=== PATIENT | female | born 1995 | race Caucasian/White ===

== ENCOUNTER 2016-07-01 21:24 | Emergency (ER) | payer OTHER ==
[~2016-07-01] VITALS: Ht 172.7 cm; Wt 75.0 kg
[2016-07-01 21:27] VITALS: BP 118/74; PULSE 76; RESP 16; O2SAT 100
--- NOTE | 2016-07-01 22:33 | ED.REPORT ---
HPI-Abd Pain F Under 40 Date of Service Jul 01, 2016 ED Provider: Dr. Mckinnon Pt is a healthy 20 y/o female presenting to the ED c/o LLQ abdominal cramping and vaginal spotting onset about 2 hours ago. She c/o associated nausea. The patient took 2 home tests on Jun 15 which were positive. She is going through about 1 pad/hour. This is her second , there was no complication during the first. She estimates that she is 7 weeks . Pt denies fatigue, vomiting, diarrhea, fever, chills, CP, SOB. Nursing Notes Stated Complaint: POSSIBLE MISCARRIAGE Chief Complaint: Female Abdominal Pain Nursing Notes Reviewed: Yes Allergies: Coded Allergies: No Known Allergies (Unverified , 07/01/16) Scheduled Promethazine (Promethazine) 12.5 Mg Tablet 12.5 MG PO TID General Time Seen by MD: 22:32 Chief Complaint Abdominal pain Hx Obtained From: Patient Arrived By: Walk-in Sudden in Onset?: No Onset Occurred: 1 - 4 hours ago Symptom Duration: Since onset Progression since Onset: Unchanged Location: : LLQ Quality: Cramping Radiation: : Does not radiate Severity: Current: Mild Severity: Maximum: Mild Past Medical History Past Medical History Denies Past Surgical History None reported Smoking History Unknown if Ever Smoker Ambulatory Status Independent Review of Systems Constitutional: Denies: Chills, Fever Respiratory: Denies: Non-productive cough, Shortness of breath Cardiovascular: Denies: Chest pain, Dyspnea on exertion GI: Reports: Abdominal pain, Nausea, Denies: Diarrhea, Vomiting Female: Reports: Vaginal bleeding - abnl Complete sys rev & neg: except as marked. Physical Exam Initial Vital Signs Vital Signs (First) Date Time Temp Pulse Resp B/P Pulse Ox O2 Delivery O2 Flow Rate FiO2 07/01/16 21:27 76 16 118/74 100 Room Air 07/02/16 00:51 36.2 Initial VS: Reviewed, Vital signs normal Head / Eyes: Atraumatic, Normocephalic, PERRL ENT: Mucous membranes moist, Conjunctiva normal, No scleral icterus Neck: Supple, Full range of motion Extremities: Vascular intact, Neuro intact, No swelling, No tenderness Skin: Warm, Dry, No cyanosis Neurologic: Alert, Oriented, Nonfocal Psychiatric: Mood/affect normal, Behavior normal, Normal thought content General/Constitutional: Awake, Alert, No acute distress, Well appearing, Cooperative, Not toxic appearing Respiratory / Chest: Atraumatic, Breath sounds NL, Breath sounds = bilat, No respiratory distress, No rales, No rhonchi, No wheezing, No retractions, No stridor, No chest tenderness, No chest wall deformity, No crepitus Cardiovascular: Heart rate NL, Regular rhythm, Heart sounds NL, No gallop, No murmurs, No rubs, Cap refill not delayed, Peripheral circulation NL Abdomen: Atraumatic, Soft, No guarding, No rebound, No distention, No palpable mass Tenderness/Guarding/Rebound: Positive: Tender LLQ... (Mild) Back: Full range of motion, Painless range of motion Interpretation & Diagnostics Lab Results Interpretation Result Diagram: 07/01/16 2315 07/01/16 2315 Test 07/01/16 23:15 07/01/16 23:33 White Blood Count 12.6th/mm3 (3.8-10.1) Red Blood Count 4.10mil/mm3 (3.90-5.20) Hemoglobin 12.0g/dL (12.0-15.6) Hematocrit 35.2% (35.0-46.0) Mean Corpuscular Volume 85.9fL (81-100) Mean Corpuscular Hemoglobin 29.3pg (27.0-35.0) Mean Corpuscular Hemoglobin Concent 34.1% (32.0-37.0) Red Cell Distribution Width 12.8% (12.3-15.4) Platelet Count 238bil/L (150-400) Sodium Level 136mEq/L (134-144) Potassium Level 3.8mEq/L (3.5-5.2) Chloride Level 99mEq/L (97-108) Carbon Dioxide Level 23mmol/L (18-29) Blood Urea Nitrogen 9mg/dL (6-20) Creatinine 0.51mg/dL (0.57-1.00) Estimat Glomerular Filtration Rate 216mL/min (>59) Glucose Level 139mg/dL (60-99) Calcium Level 9.0mg/dL (8.5-10.1) Total Bilirubin 0.2mg/dL (0.0-1.2) Aspartate Amino Transf (AST/SGOT) 14U/L (0-50) Alanine Aminotransferase (ALT/SGPT) 14U/L (0-32) Alkaline Phosphatase 60U/L (25-150) Total Protein 6.5g/dL (6.4-8.4) Albumin 4.3g/dL (3.4-5.0) HCG Beta Subunit 421.5mIU/mL Hold Jackson Top Tube Received (Received) Urine Color Straw (YELLOW) Urine Appearance Cloudy (CLEAR,HAZY) Urine pH 7.0 (5.0-8.0) Urine Specific [place] 1.020 (1.003-1.035) Urine Protein Negativemg/dL (NEG,TRACE) Urine Glucose (UA) Negativemg/dL (NEGATIVE) Urine Ketones Negativemg/dL (NEGATIVE) Urine Occult Blood Large (NEGATIVE) Urine Nitrite Negative (NEGATIVE) Urine Bilirubin Negative (NEGATIVE) Urine Urobilinogen Normalmg/dL (NORMAL) Urine Leukocyte Esterase Negative (NEGATIVE) Urine RBC >50/hpf (0-2) Urine WBC 0-5/hpf (0-5) Urine Epithelial Cells Occasional/hpf (NONE-MOD) Urine Crystals Amorphous phosphates Urine Bacteria None/hpf (NONE-FEW) Urine Hyaline Casts None/lpf (NONE) Urine Granular Casts None seen (NONE SEEN) Urine Waxy Casts None seen (NONE SEEN) Urine Red Blood Cell Casts None seen (NONE SEEN) Urine White Blood Cell Casts None seen (NONE SEEN) Urine Mucus None seen (None Seen) Urine Trichomonas None seen (NONE SEEN) Urine Yeast None (NONE SEEN) Urine Culture Reflexed Not indicated Lab Results Interpretation: Rh positive Urine : negative Re-Eval/Medical Decision Med Decision/Clinical Course Med Decision/Clinical Course: 20-year-old currently thought to be seven weeks presents with spotty bleeding and crampy abdominal pain. Using a more than a pad an hour at any point. Her hCG quantitative is in the mid 400s. No utility for ultrasound at this point. Planned follow-up already arranged at [facility], and she will be seen day after tomorrow. Repeat hCG can be done at that time for trending. Discharged home on pelvic rest bedrest in work note for two days. Follow-up abscess family . Prompt return if heavy bleeding or other new symptoms develop. Re-Evaluation/Progress : Time of Eval: 00:23 Re-Evaluation/Progress Note: Pt rechecked. Discussed lab results and threatened miscarriage. Informed pt of plan for treatment. Pt understands and agrees with plan for treatment. F/U instructions and RTER warnings given. All questions addressed. Counseled Regarding: Diagnosis, Lab results, Need for follow-up, When/why to return to ED Discharge & Departure Primary Impression: Threatened miscarriage Disposition: Home Discharge Condition All VS Reviewed: Yes Condition: Stable Patient Instructions: Threatened Miscarriage (ED) Additional Instructions: Bed rest as much as possible. Pelvic rest. No douching no sex. Follow-up with your [facility] practitioner as planned. Return if any heavy bleeding or other new symptoms of concern. You need a repeat hCG done in about the forty-eight hour time frame. Your doctor will coordinate that. Referrals: [facility] Scribe Attestation Portions of this note were transcribed by Sadiq Barros. I, Dr. Mckinnon personally performed the history, physical exam and medical decision-making; I reviewed and confirmed the accuracy of the information in the transcribed note. Signed by Arron Rincon, 07/01/16 - 2299 Yaron Mckinnon MD Jul 01, 2016 22:33 SADIQ BARROS Jul 01, 2016 22:38
[2016-07-01 23:24] LABS: Mean Corpuscular Hemoglobin 29.3 pg (27.0-35.0); Mean Corpuscular Volume 85.9 fL (81-100)
[2016-07-01 23:51] LABS: APPEARANCE,URINE CLOUDY (CLEAR,HAZY); COLOR,URINE STRAW (YELLOW); OCCULT BLOOD,URINE LARGE (NEGATIVE); UROBILINOGEN,URINE NORMAL (NORMAL)
[2016-07-02] MEDS ORDERED: PROM12.510 PO (00:34)
[2016-07-02 00:51] VITALS: BP 126/70; PULSE 76; RESP 16; O2SAT 99
== END 2016-07-02 00:52 | disposition home or self-care (01) ==
LOC: SED 21:24
DX: O20.0 Threatened abortion (principal); Z3A.01 Less than 8 weeks gestation of pregnancy
CPT/HCPCS: 36415; 80053; 81000; 81025; 84702; 85027; 99284; Q0169

== ENCOUNTER 2016-07-15 11:10 | Emergency (ER) | payer OTHER ==
[~2016-07-15] VITALS: Ht 172.7 cm; Wt 75.0 kg
[~2016-07-15 11:10] MED LIST: PROM12.510 PO
[2016-07-15 11:17] VITALS: BP 114/71; PULSE 118; RESP 18; O2SAT 95
--- NOTE | 2016-07-15 11:38 | ED.REPORT ---
HPI-Abd Pain F Under 40 Date of Service Jul 15, 2016 ED Provider: MD Conrad This is a 20 year old female presenting to the emergency department due to vomiting that began 3 days ago. Associated symptoms include RLQ abdominal pain, fevers, chills, and dysuria. Measured fever of 102.4 F, improved with Tylenol. Pt reports she had a miscarriage two weeks ago, abdominal pain since then with persistent vaginal bleeding. Denies sore throat, rhinorrhea, cough, myalgias, diarrhea, or constipation. Pt sent from urgent care today. Nursing Notes Stated Complaint: FEVER/VOMITING Chief Complaint: Female Abdominal Pain Nursing Notes Reviewed: Yes Allergies: Coded Allergies: No Known Allergies (Unverified , 07/15/16) Scheduled Ciprofloxacin (Ciprofloxacin) 500 Mg Tablet 500 MG PO BID Ondansetron ODT (Ondansetron ODT) 8 Mg Tab.rapdis 8 MG PO Q6H General Time Seen by MD: 11:38 Chief Complaint Vomiting mild Hx Obtained From: Patient Arrived By: Walk-in Sudden in Onset?: Yes Onset Occurred: 3 days ago Symptom Duration: Since onset Severity: Current: Mild Pertinent Negative: Pt denies other symptoms Recent Healthcare: No recent hospitalization, Recent doctor visit Similar Sx Previous: No Past Medical History Past Medical History Denies Past Surgical History None reported Smoking History Unknown if Ever Smoker Ambulatory Status Independent Review of Systems Constitutional: Reports: Chills, Fever Respiratory: Denies: Non-productive cough, Shortness of breath Cardiovascular: Denies: Chest pain GI: Reports: Abdominal pain, Nausea, Vomiting, Denies: Constipation, Diarrhea Female: Reports: Dysuria, Vaginal bleeding - abnl Musculoskeletal: Denies: Back pain Complete sys rev & neg: except as marked. Physical Exam Initial Vital Signs Vital Signs (First) Date Time Temp Pulse Resp B/P Pulse Ox O2 Delivery O2 Flow Rate FiO2 07/15/16 11:17 37.6 118 18 114/71 95 Room Air Initial VS: Reviewed Head / Eyes: Atraumatic, Normocephalic, PERRL Neck: Supple, Non-tender, Full range of motion Extremities: Vascular intact, Neuro intact, No swelling, No tenderness Skin: Warm, Dry, No cyanosis Neurologic: Alert, Oriented, Nonfocal Psychiatric: Mood/affect normal, Behavior normal, Normal thought content General/Constitutional: Awake, Alert Respiratory / Chest: Breath sounds NL, Breath sounds = bilat, No respiratory distress, No rales, No rhonchi, No wheezing Cardiovascular: Regular rhythm, Heart sounds NL, Peripheral circulation NL Heart Rate / Rhythm: Positive: Tachycardia Abdomen: BS normoactive R mid-quadrant tenderness, R flank tenderness. Back: Inspection NL, Non-tender, No CVA tenderness ENT: Pharynx NL Mouth: Positive: Mucous membranes dry Interpretation & Diagnostics Lab Results Interpretation Result Diagram: 07/15/16 1150 07/15/16 1150 Test 07/15/16 11:50 07/15/16 11:54 White Blood Count 9.9th/mm3 (3.8-10.1) Red Blood Count 4.09mil/mm3 (3.90-5.20) Hemoglobin 11.8g/dL (12.0-15.6) Hematocrit 35.0% (35.0-46.0) Mean Corpuscular Volume 85.6fL (81-100) Mean Corpuscular Hemoglobin 28.9pg (27.0-35.0) Mean Corpuscular Hemoglobin Concent 33.7% (32.0-37.0) Red Cell Distribution Width 12.6% (12.3-15.4) Platelet Count 174bil/L (150-400) Neutrophils (%) (Auto) 83.9% (40-74) Lymphocytes (%) (Auto) 4.2% (14-46) Monocytes (%) (Auto) 11.3% (4-12) Eosinophils (%) (Auto) 0.2% (0-5) Basophils (%) (Auto) 0.1% (0-3) Sodium Level 138mEq/L (134-144) Potassium Level 3.6mEq/L (3.5-5.2) Chloride Level 100mEq/L (97-108) Carbon Dioxide Level 22mmol/L (18-29) Blood Urea Nitrogen 7mg/dL (6-20) Creatinine 0.57mg/dL (0.57-1.00) Estimat Glomerular Filtration Rate 190mL/min (>59) Glucose Level 122mg/dL (60-99) Calcium Level 8.8mg/dL (8.5-10.1) Magnesium Level 1.7mg/dL (1.6-2.6) Total Bilirubin 1.1mg/dL (0.0-1.2) Aspartate Amino Transf (AST/SGOT) 12U/L (0-50) Alanine Aminotransferase (ALT/SGPT) 12U/L (0-32) Alkaline Phosphatase 64U/L (25-150) Total Protein 6.8g/dL (6.4-8.4) Albumin 4.2g/dL (3.4-5.0) Lipase 17U/L (13-60) HCG Beta Subunit 18.97mIU/mL Urine Color Yellow (YELLOW) Urine Appearance Hazy (CLEAR,HAZY) Urine pH 6.0 (5.0-8.0) Urine Specific [place] 1.017 (1.003-1.035) Urine Protein 30mg/dL (NEG,TRACE) Urine Glucose (UA) Negativemg/dL (NEGATIVE) Urine Ketones 15mg/dL (NEGATIVE) Urine Occult Blood Large (NEGATIVE) Urine Nitrite Negative (NEGATIVE) Urine Bilirubin Negative (NEGATIVE) Urine Urobilinogen Normalmg/dL (NORMAL) Urine Leukocyte Esterase Moderate (NEGATIVE) Urine RBC 0-2/hpf (0-2) Urine WBC 11-50/hpf (0-5) Urine Epithelial Cells Few/hpf (NONE-MOD) Urine Crystals None seen (NONE SEEN) Urine Bacteria Few/hpf (NONE-FEW) Urine Hyaline Casts None/lpf (NONE) Urine Granular Casts None seen (NONE SEEN) Urine Waxy Casts None seen (NONE SEEN) Urine Red Blood Cell Casts None seen (NONE SEEN) Urine White Blood Cell Casts None seen (NONE SEEN) Urine Mucus None seen (None Seen) Urine Trichomonas None seen (NONE SEEN) Urine Yeast None (NONE SEEN) Urinalysis Comment None Urine Culture Reflexed Indicated Re-Eval/Medical Decision Med Decision/Clinical Course Patient has a UTI with symptoms of an ascending infection. She was given a first dose of IV antibiotics. A partial list of additional differential diagnoses considered were seen, ovarian cyst, and appendicitis. Re-Evaluation/Progress : Time of Eval: 13:26 Re-Evaluation/Progress Note: Discussed plan for d/c, all questions addressed Counseled Regarding: Diagnosis, Lab results, Need for follow-up Discharge & Departure Primary Impression: Pyelonephritis Disposition: Home Discharge Condition All VS Reviewed: Yes Condition: Stable Patient Instructions: Acute Pyelonephritis (ED) Additional Instructions: Thank you for seeking care at the emergency department today. Take antibiotics as prescribed. Follow up with your primary care provider. Seek care if you develop any new or worsening symptoms. Referrals: NOPCP (PCP) Scribe Attestation Portions of this note were transcribed by Shin Devlin. I, Dr. Martines personally performed the history, physical exam and medical decision-making; I reviewed and confirmed the accuracy of the information in the transcribed note. Signed by: yasir Akins. 07/15/2016, 15:00. Anum Martines MD Jul 15, 2016 11:38 SHIN DEVLIN Jul 15, 2016 11:42
[2016-07-15] MEDS ORDERED: Ketorolac 15 mg/mL Inj IVPUSH ONE (11:55)
[2016-07-15] MEDS ORDERED: 0.9% Sodium Chloride 1,000 ML IV ONE (11:55)
[2016-07-15] MEDS ORDERED: Ondansetron 2 mg/mL 2 mL Inj IVPUSH PRN (11:55)
[2016-07-15] MEDS ORDERED: HYDROmorphone 0.5 mg/0.5 mL iSecure Syringe IVPUSH PRN (11:55)
[2016-07-15 12:06] LABS: BASOPHILS % (AUTO) 0.1 % (0-3); EOSINOPHILS % (AUTO) 0.2 % (0-5); MONOCYTES % (AUTO) 11.3 % (4-12); Mean Corpuscular Hemoglobin 28.9 pg (27.0-35.0); Mean Corpuscular Volume 85.6 fL (81-100); NEUTROPHILS % (AUTO) 83.9 % (40-74); Platelet Count 174 bil/L (150-400)
[2016-07-15 12:37] LABS: Magnesium 1.7 mg/dL (1.6-2.6)
[2016-07-15 13:10] LABS: APPEARANCE,URINE HAZY (CLEAR,HAZY); COLOR,URINE YELLOW (YELLOW); OCCULT BLOOD,URINE LARGE (NEGATIVE); UROBILINOGEN,URINE NORMAL (NORMAL)
[2016-07-15] MEDS ORDERED: cefTRIAXone Inj 1,000 MG in Dextrose 5% Minibag Plus 50 ML IV ONE (13:15)
[2016-07-15] MEDS ORDERED: ONDA8TAB10 PO (13:37)
[2016-07-15] MEDS ORDERED: CIPR-198 PO (13:37)
[2016-07-15 14:02] VITALS: BP 99/62; PULSE 83; RESP 15; O2SAT 97
== END 2016-07-15 13:19 | disposition home or self-care (01) ==
LOC: SED 11:10
DX: N12 Tubulo-interstitial nephritis, not specified as acute or chronic (principal)
CPT/HCPCS: 36415; 80053; 81000; 83690; 83735; 84702; 85025; 87086; 87088; 87186; 96361; 96365; 96375; 99285; J0696; J1885; J7030